=== PATIENT | male | born 2005 | race Caucasian/White ===

== ENCOUNTER 2024-10-16 14:26 | Emergency (ER) | payer OTHER, SELFPAY | END 2024-10-16 15:10 | disposition home or self-care (01) | LOC: NAV ERS 14:26 | DX: R19.7 Diarrhea, unspecified (principal); F17.210 Nicotine dependence, cigarettes, uncomplicated; F17.290 Nicotine dependence, other tobacco product, uncomplicated | CPT/HCPCS: 99283 ==